=== PATIENT | female | born 1965 | race Caucasian/White ===

== ENCOUNTER 2019-12-31 22:28 | Inpatient (IN) | payer MEDICAID ==
[~2019-12-31] VITALS: Ht 162.6 cm; Wt 48.5 kg
[~2019-12-31 22:28] MED LIST: ACET-868 PO; ACID1CAP2 PO; ASCO10007 PO; BACL10TA PO; BISA-79 PO; BUSP10TA35 PO; DOCU250C89 PO; HYDR-3974 PO; LORA-259 PO; MORP30CA16 PO; SORB30SO2 PO; TEMA7.5C PO
--- NOTE | 2019-12-31 22:30 | NUR ---
PT BIBRA C/O ABDOMINAL PAIN. PT ALSO R FLANK PAIN, NAUSEA, CONSTIPATION PT STATES LBM 12/28. PT STATES SHE WAS DIAGNOSED WITH KIDNEY STONE EARLIER TODAY VIA ULTRASOUND. PT AAOX4. RESPIRATIONS EVEN AND UNLABORED. SKIN INTACT. VITAL SIGNS STABLE. NO ACUTE DISTRESS NOTED AT THIS TIME. WILL CONTINUE TO MONITOR
[2019-12-31] MEDS ORDERED: CEFTRIAXONE 1 G in IV D5W 50 ML IV ONE (23:00)
[2019-12-31] MEDS ORDERED: HYDROMORPHONE INJ 2 MG/ML DISP.SYRIN IV ONE (23:00)
[2019-12-31] MEDS ORDERED: ONDANSETRON HCL/PF 4 MG/2 ML VIAL IVP ONE (23:00)
[2019-12-31] MEDS ORDERED: IV NS 0.9% 1,000 ML BAG IV ONE (23:00)
[2019-12-31] MEDS ORDERED: CEFTRIAXONE 1GM BAG (ER ONLY) 50 ML IV ONE (23:08)
[2019-12-31] MEDS ORDERED: ONDANSETRON HCL/PF 4 MG/2 ML VIAL ONE (23:08)
[2019-12-31] MEDS ORDERED: HYDROMORPHONE 1 MG/1 ML DISP.SYRIN ONE (23:08)
[2019-12-31 23:11] LABS: BASOPHILS % (AUTO) 0.2 % (0.0-2.0); HEMATOCRIT 42 % (33-45); HEMOGLOBIN 14.2 g/dL (11.5-14.8); LYMPHOCYTES # (AUTO) 0.5 /CMM (0.8-4.8); LYMPHOCYTES % (AUTO) 7.4 % (20.0-44.0); MEAN CORPUSCULAR HGB CONC 34 g/dl (31.0-36.0); MEAN CORPUSCULAR VOLUME 88 fL (82-100); MONOCYTES # (AUTO) 0.2 /CMM (0.1-1.30); MONOCYTES % (AUTO) 2.4 % (2.0-12.0); NEUTROPHILS # (AUTO) 6.6 /CMM (1.8-8.9); PLATELET COUNT (AUTO) 268 /CMM (150-450); RED BLOOD CELL COUNT(AUTO) 4.78 MIL/uL (4.0-5.2); WHITE BLOOD COUNT (AUTO) 7.3 K/uL (4.3-11.0)
--- NOTE | 2019-12-31 23:17 | NUR ---
PER DR. BURTON, BLOOD CULTURES NOT NEEDED PRIOR TO ROCEPHIN ADMINISTRATION
--- NOTE | 2019-12-31 23:20 | NUR ---
PT BROUGHT BY RADIOLOGY TO CT
[2019-12-31 23:21] LABS: CALCIUM, SERUM 9.2 mg/dL (8.5-10.1); CREATININE 1.2 mg/dL (0.6-1.3); POTASSIUM 3.8 mmol/L (3.5-5.1)
[2019-12-31 23:26] LABS: ALBUMIN 3.6 g/dL (3.4-5.0); BILIRUBIN,DIRECT 0.1 mg/dL (0.0-0.2); BILIRUBIN,TOTAL 0.3 mg/dL (0.2-1.0); TOTAL PROTEIN, SERUM 7.2 g/dL (6.4-8.2)
--- NOTE | 2019-12-31 23:30 | NUR ---
PT RETURNED FROM CT
--- NOTE | 2019-12-31 23:53 | NUR ---
URINE COLLECTED AND SENT TO LAB
[2019-12-31 23:58] LABS: APPEARANCE,URINE Clear (CLEAR); BILIRUBIN,URINE Negative (NEGATIVE); BLOOD, URINE Negative Ery/uL (NEGATIVE); COLOR,URINE Yellow (YELLOW); KETONES,URINE Negative (NEGATIVE); LEUKOCYTE ESTERASE ,URINE Negative (NEGATIVE); NITRITE, URINE Positive (NEGATIVE); PROTEIN,URINE Negative (NEGATIVE); UGLUCOSE Negative (NEGATIVE); UROBILINOGEN,URINE 0.2 EU/dL (0.2)
[2020-01-01 00:13] LABS: RBC,URINE NONE SEEN /HPF (0-2)
[2020-01-01 00:14] LABS: BACTERIA,URINE 2+ /HPF (None Seen); SQUAMOUS EPITHELIAL CELL,UR Few /HPF (None Seen)
--- NOTE | 2020-01-01 00:41 | NUR ---
DR. BURTON ON THE PHONE WITH DR. LEOS
--- NOTE | 2020-01-01 01:07 | NUR ---
REPORT GIVEN TO DILCIA ADHIKARI FOR PAULY
[2020-01-01] MEDS ORDERED: ONDANSETRON HCL/PF 4 MG/2 ML VIAL ONE (01:15)
--- NOTE | 2020-01-01 01:16 | NUR ---
PT C/O NAUSEA, PER VERBAL MD ORDER WILL ADMINISTER ZOFRAN 4MG IV X1 NOW
--- NOTE | 2020-01-01 01:20 | NUR ---
PT TRANSFERRED TO [facility] FLOOR VIA [facility]
[2020-01-01] MEDS ORDERED: ONDANSETRON HCL/PF 4 MG/2 ML VIAL IV PRN (01:30)
--- NOTE | 2020-01-01 01:40 | NUR ---
MS MACHINE ETCHER NOTES PATIENT RECEIVED VIA GURNEY ACCOMPANIED BY ER STAFF. PATIENT A/O X 4. RECEIVED ON 2L OF O2 VIA NC. NO ACUTE DISTRESS NOTED. SLIGHT COMPLAINTS OF PAIN AND NAUSEA. PATIENT NOT AMBULATORY, NEEDS ONE PERSON ASSIST. IV LOCATED ON L FOOT #20. VITALS TAKEN. SKIN ASSESSMENT DONE. BELONGINGS DONE AND ACCOUNTED FOR. WILL CONTINUE TO MONITOR.
[2020-01-01] MEDS ORDERED: PANTOPRAZOLE 40 MG VIAL IV SCH (02:00)
[2020-01-01] MEDS ORDERED: MORPHINE SULFATE INJ 4 MG/ML DISP.SYRIN IV PRN (02:00)
[2020-01-01] MEDS ORDERED: ACETAMINOPHEN 325 MG TABLET PO PRN ×2 (02:00)
[2020-01-01] MEDS ORDERED: MORPHINE SULFATE INJ 2 MG/ML DISP.SYRIN IV PRN (02:00)
[2020-01-01] MEDS ORDERED: MAGNESIUM CITRATE 296 ML BOTTLE PO ONE (02:00)
[2020-01-01 02:07] VITALS: BP 136/75
[2020-01-01] MEDS: IV D5/ 0.9% NACL 1,000 ML IV PRN ×2 (02:28→11:58)
--- NOTE | 2020-01-01 02:40 | NUR ---
MS RN NOTES PATIENT HAVING TROUBLE DRINKING CIT[place] OF MAGNESIA DUE TO NAUSEA. HAD EMESIS. UNABLE TO FINISH BOTTLE.
[2020-01-01] MEDS: ONDANSETRON HCL/PF 4 MG/2 ML VIAL IV PRN ×2 (02:41→11:02)
[2020-01-01] MEDS: MORPHINE SULFATE INJ 2 MG/ML DISP.SYRIN IV PRN ×3 (02:43→19:59)
--- NOTE | 2020-01-01 04:33 | NUR ---
MS RN NOTES ENEMA DONE ORDERED WITH 1000 CC OF TAP WATER. NO BOWEL MOVEMENT, FLATUS PRESENT. WILL CONTINUE TO MONITOR FOR BOWEL MOVEMENT.
[2020-01-01 06:18] LABS: BASOPHILS % (AUTO) 0.2 % (0.0-2.0); HEMATOCRIT 36 % (33-45); HEMOGLOBIN 12.2 g/dL (11.5-14.8); LYMPHOCYTES # (AUTO) 0.8 /CMM (0.8-4.8); LYMPHOCYTES % (AUTO) 14.2 % (20.0-44.0); MEAN CORPUSCULAR HGB CONC 34 g/dl (31.0-36.0); MEAN CORPUSCULAR VOLUME 88 fL (82-100); MONOCYTES # (AUTO) 0.4 /CMM (0.1-1.30); MONOCYTES % (AUTO) 7.5 % (2.0-12.0); NEUTROPHILS # (AUTO) 4.3 /CMM (1.8-8.9); NEUTROPHILS % (AUTO) 78.1 % (43.0-81.0); PLATELET COUNT (AUTO) 226 /CMM (150-450); RED BLOOD CELL COUNT(AUTO) 4.12 MIL/uL (4.0-5.2); WHITE BLOOD COUNT (AUTO) 5.5 K/uL (4.3-11.0)
--- NOTE | 2020-01-01 06:47 | NUR ---
MS RN CLOSING NOTES PATIENT CURRENTLY RESTING IN BED A/O X 4. ON 2L OF O2 VIA NC WITH BREATHING EVEN AND UNLABORED, NO SOB NOTED. NO SIGNS OF ACUTE DISTRESS. NO COMPLAINTS OF PAIN OR DISCOMFORT AT THE MOMENT. IV LOCATED ON L FOOT #20 RUNNING D5NS @ 125 ML/ HR. PATIENT WAS KEPT CLEAN AND DRY THROUGHOUT THE WHOLE NIGHT NO BOWEL MOVEMENT HAS BEEN MADE THROUGHOUT THE SHIFT. ALL NEEDS ATTENDED TO. SAFETY PRECAUTIONS IN PLACE WITH BED IN LOWEST POSITION, CALL LIGHT WITHIN REACH BREAKS, ON ,AND SIDE RAILS UP X2. WILL ENDORSE TO ONCOMING SHIFT ABOUT PAULY.
[2020-01-01 07:30] LABS: CALCIUM, SERUM 8.2 mg/dL (8.5-10.1); CREATININE 1.1 mg/dL (0.6-1.3); POTASSIUM 3.3 mmol/L (3.5-5.1)
[2020-01-01 07:36] LABS: BILIRUBIN,TOTAL 0.2 mg/dL (0.2-1.0); MAGNESIUM 2.5 mg/dL (1.8-2.4)
--- NOTE | 2020-01-01 07:51 | NUR ---
rn opening notes Patient received on 2L nasal cannula, no sob noted, a/o x4 at this time. Clear liquid diet with L foot 20 D5 NS @ 125 ml per hour. Patient able to verbalize needs and want. Bed at the lowest setting, call light within reach, side rails up x2.
[2020-01-01] MEDS: PANTOPRAZOLE 40 MG VIAL IV SCH (08:14)
[2020-01-01] MEDS ORDERED: SIME180C35 PO (08:46)
[2020-01-01] MEDS ORDERED: DICY10CA37 PO (08:46)
[2020-01-01] MEDS ORDERED: NALO12.5 PO (08:46)
[2020-01-01] MEDS ORDERED: MAGN400O6 PO (08:46)
[2020-01-01] MEDS ORDERED: TAMS-12 PO (08:46)
[2020-01-01] MEDS ORDERED: NA P133E RC (08:46)
[2020-01-01] MEDS ORDERED: CRAN425C6 PO (08:46)
[2020-01-01] MEDS ORDERED: OXYB5TAB16 PO (08:46)
[2020-01-01] MEDS ORDERED: SACC250C PO (08:46)
[2020-01-01] MEDS ORDERED: BISA10SU11 RC (08:46)
[2020-01-01] MEDS ORDERED: APIX2.5T PO (08:46)
[2020-01-01] MEDS ORDERED: SULF1TAB48 PO (08:46)
[2020-01-01] MEDS ORDERED: POTASSIUM CHLORIDE 20 MEQ TAB.PRT.SR PO SCH (12:00)
[2020-01-01] MEDS: POTASSIUM CL. PREMIX PERIPHER. 50 ML IV SCH ×2 (12:20→13:19)
[2020-01-01] MEDS ORDERED: PEG 3350/NA SULF,BICARB,CL/KCL 4,000 ML BOTTLE PO ONE (13:00)
[2020-01-01] MEDS: BACLOFEN (10 MG) 10 MG TABLET PO SCH ×3 (13:17→21:01)
[2020-01-01] MEDS: LORAZEPAM INJ 2 MG/ML VIAL IV PRN (13:18)
[2020-01-01] MEDS: APIXABAN 2.5 MG TABLET PO SCH (16:12)
[2020-01-01] MEDS: TAMSULOSIN 0.4 MG CAP.SR.24H PO SCH (16:13)
--- NOTE | 2020-01-01 17:56 | NUR ---
rn closing notes Patient at room air at this time, vital signs stable, patient denies dizziness. S/P NGTube placement and CXR confirms placement. NPO for now with patient having a CXR KUB scheduled tomorrow. Golytly being given to patient at this time. Patient requires manual fecal impaction removal and I was able to remove some stool earlier. Bed at the lowest setting, call light within reach, sdie rails up x2. Will give report to NOC RN for PAULY bedside.
--- NOTE | 2020-01-01 19:00 | NUR ---
MS RN NOTE RECEIVED PT IN STABLE CONDITION A/O X4, NOTED IN BED. NO SIGNS OF SOB OR DISTRESS, PAIN TO BE MANAGED WITH MEDICATION. NOTED WITH NG TUBE IN PLACE. IV IN L FOOT #[address] WITH IVF INFUSING. ALL CURRENT NEEDS ATTENDED TO. BED LOW, LOCKED, UPPER RAILS UP AND CALL LIGHT WITHIN REACH, WILL CONT TO MONITOR AND REPOSITION PER PROTOCOL.
[2020-01-01] MEDS: CEFTRIAXONE 1 G in IV D5W 50 ML IV SCH (21:02)
[2020-01-02] MEDS: MORPHINE SULFATE INJ 2 MG/ML DISP.SYRIN IV PRN ×5 (01:17→18:03)
[2020-01-02] MEDS: IV D5/ 0.9% NACL 1,000 ML IV PRN ×3 (02:51→20:39)
--- NOTE | 2020-01-02 04:55 | NUR ---
MS RN NOTE ASKED PT IF SHE WOULD LIKE TO BE STRAIGHT CATH. PT DECLINES, STATING THAT SHE DOES NOT GET CATHETERIZED TODAY.
--- NOTE | 2020-01-02 06:29 | NUR ---
MS RN NOTE PT REMAINS IN STABLE CONDITION A/O X4, NOTED IN BED. NO SIGNS OF SOB OR DISTRESS, PAIN MANAGED WITH MEDICATION. NOTED WITH NG TUBE IN PLACE. IV IN L FOOT #[address] WITH IVF INFUSING. ALL CURRENT NEEDS ATTENDED TO. BED LOW, LOCKED, UPPER RAILS UP AND CALL LIGHT WITHIN REACH, WILL CONT TO MONITOR AND REPOSITIONED PER PROTOCOL. WILL ENDORSE TO NEXT SHIFT FOR PAULY.
[2020-01-02 06:31] LABS: BASOPHILS % (AUTO) 1.2 % (0.0-2.0); EOSINOPHILS % (AUTO) 2.2 % (0.0-6.0); HEMATOCRIT 35 % (33-45); HEMOGLOBIN 11.9 g/dL (11.5-14.8); LYMPHOCYTES % (AUTO) 27.6 % (20.0-44.0); MEAN CORPUSCULAR HGB CONC 34 g/dl (31.0-36.0); MEAN CORPUSCULAR VOLUME 89 fL (82-100); MONOCYTES # (AUTO) 0.4 /CMM (0.1-1.30); NEUTROPHILS # (AUTO) 2.1 /CMM (1.8-8.9); PLATELET COUNT (AUTO) 200 /CMM (150-450); RED BLOOD CELL COUNT(AUTO) 3.93 MIL/uL (4.0-5.2); WHITE BLOOD COUNT (AUTO) 3.5 K/uL (4.3-11.0)
[2020-01-02 06:52] LABS: CREATININE 0.7 mg/dL (0.6-1.3); MAGNESIUM 1.9 mg/dL (1.8-2.4); POTASSIUM 3.5 mmol/L (3.5-5.1)
--- NOTE | 2020-01-02 09:08 | NUR ---
MS RN NOTES-- PT WAS SEEN AND EXAMINED BY DR. LEOS WITH VERBAL ORDERS TO REMOVE NGT ONCE PT HAS 1 MORE BOWEL MOVEMENT. ORDER READ BACK AND VERIFIED. NOTED AND CARRIED OUT.
[2020-01-02] MEDS: BACLOFEN (10 MG) 10 MG TABLET PO SCH ×4 (09:48→21:13)
[2020-01-02] MEDS: TAMSULOSIN 0.4 MG CAP.SR.24H PO SCH ×2 (09:48→21:13)
[2020-01-02] MEDS: PANTOPRAZOLE 40 MG VIAL IV SCH (09:48)
[2020-01-02] MEDS: DOCUSATE SODIUM 250 MG CAPSULE PO SCH (09:49)
[2020-01-02] MEDS: APIXABAN 2.5 MG TABLET PO SCH ×2 (09:49→16:13)
[2020-01-02 14:41] VITALS: BP 140/80
[2020-01-02 16:00] VITALS: BP 132/81
--- NOTE | 2020-01-02 18:17 | NUR ---
MS RN END OF SUMMARY NOTES PT IS A/O X4, AFEBRILE. RESPIRATIONS ARE EVEN AND UNLABORED, NOT IN ANY ACUTE DISTRESS NOTED. PT DENIES ANY PAIN AT THIS TIME, NO C/O CHEST PAIN, SOB. ABDOMEN IS SOFT AND NONDISTENDED, BOWEL SOUNDS ARE PRESENT IN ALL 4 QUADRANTS UPON AUSCULTATION. + FLATUS, LARGE BM X4 DURING SHIFT. TOLERATING PO, NO C/O N/V. PT ABLE TO VOID ADEQUATE UOP. IV SITE TO LEFT FOOT INTACT, NO INFILTRATION NOTED. DRESSING KEPT CLEAN AND DRY. SKIN IS INTACT, KEPT CDI. ALL NEEDS MET AND RENDERED. SAFETY MEASURES ARE IN PLACE. CALL LIGHT IS LEFT WITHIN REACH. WILL MONITOR AND CONTINUE POC.
--- NOTE | 2020-01-02 19:05 | NUR ---
MS RN NOTE RECEIVED PT IN STABLE CONDITION A/O X4, NOTED IN BED. NO SIGNS OF SOB OR DISTRESS, PAIN TO BE MANAGED WITH MEDICATION. IV IN L FOOT #[address] WITH IVF INFUSING. ALL CURRENT NEEDS ATTENDED TO. BED LOW, LOCKED, UPPER RAILS UP AND CALL LIGHT WITHIN REACH, WILL CONT TO MONITOR AND REPOSITION PER PROTOCOL.
[2020-01-02 20:00] VITALS: BP 164/84
[2020-01-02] MEDS: LORAZEPAM INJ 2 MG/ML VIAL IV PRN (20:01)
[2020-01-02] MEDS: CEFTRIAXONE 1 G in IV D5W 50 ML IV SCH (21:13)
[2020-01-03] MEDS: MORPHINE SULFATE INJ 2 MG/ML DISP.SYRIN IV PRN ×5 (00:26→17:08)
[2020-01-03] MEDS: IV D5/ 0.9% NACL 1,000 ML IV PRN (05:31)
--- NOTE | 2020-01-03 06:22 | NUR ---
MS RN NOTE PT REMAINS IN STABLE CONDITION A/O X4, NOTED IN BED. NO SIGNS OF SOB OR DISTRESS, PAIN TO BE MANAGED WITH MEDICATION. IV IN L FOOT #[address] WITH IVF INFUSING. ALL CURRENT NEEDS ATTENDED TO. BED LOW, LOCKED, UPPER RAILS UP AND CALL LIGHT WITHIN REACH,REPOSITIONED PER PROTOCOL.
--- NOTE | 2020-01-03 07:45 | NUR ---
MS/RN NOTE THE PATIENT IS RECEIVED IN BED. PATIENT IS ALERT AND ORIENTED X4. IN ROOM AIR AND DENIES SOB. RESPIRATION REGULAR AND UNLABORED. DENIES PAIN. THE PATIENT IN NO APPARENT DISTRESS. LEFT FOOT G 20 PATENT AND D5NS INFUSING AT 125ML/HR AND NO S/S INFILTRATION NOTED. BED LOW AND LOCKED. SIDE RAILS UP X3. CALL LIGHT WITHIN REACH. WILL CONTINUE TO MONITOR.
[2020-01-03] MEDS: DOCUSATE SODIUM 250 MG CAPSULE PO SCH (08:34)
[2020-01-03] MEDS: BACLOFEN (10 MG) 10 MG TABLET PO SCH ×3 (08:34→17:08)
[2020-01-03] MEDS: TAMSULOSIN 0.4 MG CAP.SR.24H PO SCH ×2 (08:34→17:08)
[2020-01-03] MEDS: PANTOPRAZOLE 40 MG VIAL IV SCH (08:34)
[2020-01-03] MEDS: APIXABAN 2.5 MG TABLET PO SCH ×2 (08:41→17:08)
[2020-01-03] MEDS ORDERED: SORB30SO2 GT (12:04)
--- NOTE | 2020-01-03 17:49 | NUR ---
MS/RN NOTE THE PATIENT IS ALERT AND ORIENTED X4. DENIES PAIN AT THIS TIME. IN ROOM AIR AND OXYGEN SATURATION IS AT 98%. RESPIRATION REGULAR AND UNLABORED. DENIES PAIN. PATIENT IS PROVIDED DISCHARGE EDUCATION/ INSTRUCTIONS AND SHE VERBALIZED UNDERSTANDING. LEFT FOOT IV REMOVED AND THE SITE WITH MINIMAL BLEEDING. PATIENT IS PICKED UP BY THE ARRANGED AMBULANCE. THE PATIENT LEFT THE HOSPITAL IN STABLE CONDITION.
== END 2020-01-03 17:45 | DRG 254 ==
LOC: ER 22:28 → MEDSG2 01-01 00:56
PROVIDERS: ADMIT Legal Medicine; ATTEND Legal Medicine
DX: K59.00 Constipation, unspecified (principal); G82.20 Paraplegia, unspecified; G89.4 Chronic pain syndrome; I10 Essential (primary) hypertension; Z88.8 Allergy status to other drugs, medicaments and biological substances; Z91.048 Other nonmedicinal substance allergy status; Z79.899 Other long term (current) drug therapy
CPT/HCPCS: 36415; 71045-TC; 74018; 80048-TC; 80053-TC; 80076-TC; 81000-TC; 83690-TC; 83735-TC; 85025-TC; 85730-TC; 87081-TC; 87086-TC; C9113; G0378; J0696; J1170; J2060; J2270; J2405; J3480; J3490; J7030; J7042; J7060